=== PATIENT | female | born 1955 | race Two or more races ===

== ENCOUNTER 2020-07-04 14:06 | Outpatient (CLI) | payer BC | END 2020-07-04 23:59 | disposition home or self-care (01) | LOC: MSC 14:06 | PROVIDERS: ATTEND Internal Medicine | DX: R56.9 Unspecified convulsions (principal); M81.0 Age-related osteoporosis without current pathological fracture; Z87.891 Personal history of nicotine dependence ==

== ENCOUNTER 2023-06-23 13:56 | Emergency (ER) | payer BC, MEDICARE ==
[~2023-06-23] VITALS: Ht 157.5 cm; Wt 49.9 kg
[2023-06-23] MEDS ORDERED: IBUP-1955 PO (14:56)
[2023-06-23 15:01] VITALS: BP 120/84; TEMP 98; O2SAT 98
== END 2023-06-23 15:02 | disposition home or self-care (01) ==
LOC: ER 14:03
DX: S93.601A Unspecified sprain of right foot, initial encounter (principal); X50.1XXA Overexertion from prolonged static or awkward postures, initial encounter; Y93.89 Activity, other specified; Y92.89 Other specified places as the place of occurrence of the external cause; Y99.8 Other external cause status
CPT/HCPCS: 73630-TC